=== PATIENT | female | born 1955 | race Caucasian/White ===

== ENCOUNTER → 2023-08-29 15:19 | Outpatient (REF) | payer BC, MEDICARE, SELFPAY | LOC: HWRAD 15:19 | PROVIDERS: ATTENDING PHYSICIAN Internal Medicine Endocrinology, Diabetes & Metabolism; FAMILY PHYSICIAN Family Medicine; REFERRING PHYSICIAN Internal Medicine Rheumatology | DX: E21.0 Primary hyperparathyroidism (principal); Z79.4 Long term (current) use of insulin; E78.5 Hyperlipidemia, unspecified; E04.1 Nontoxic single thyroid nodule; E06.3 Autoimmune thyroiditis; M54.2 Cervicalgia; M54.9 Dorsalgia, unspecified; R05.9 Cough, unspecified | CPT/HCPCS: 71046; 72040; 74018; 77080 ==

== ENCOUNTER → 2024-01-09 10:17 | Outpatient (REF) | payer BC, MEDICARE, SELFPAY | LOC: HWRAD 10:17 | PROVIDERS: ATTENDING PHYSICIAN Family Medicine | DX: E04.1 Nontoxic single thyroid nodule (principal) | CPT/HCPCS: 76536 ==

== ENCOUNTER → 2024-01-20 11:04 | Outpatient (REF) | payer BC, MEDICARE, SELFPAY | LOC: HWWDC 11:04 | PROVIDERS: ATTENDING PHYSICIAN Family Medicine | DX: Z12.31 Encounter for screening mammogram for malignant neoplasm of breast (principal) | CPT/HCPCS: 77063; 77067 ==

== ENCOUNTER → 2024-02-27 10:53 | Outpatient (REF) | payer BC, MEDICARE, SELFPAY | LOC: HWEVLT 10:53 | PROVIDERS: ATTENDING PHYSICIAN Radiology Vascular & Interventional Radiology | DX: I83.893 Varicose veins of bilateral lower extremities with other complications (principal) | CPT/HCPCS: 93970 ==

== ENCOUNTER → 2024-04-14 11:07 | Outpatient (REF) | payer BC, MEDICARE, SELFPAY | LOC: HWEVLT 11:07 | PROVIDERS: ATTENDING PHYSICIAN Radiology Diagnostic Radiology | DX: I83.891 Varicose veins of right lower extremity with other complications (principal) | CPT/HCPCS: 36471 ==

== ENCOUNTER → 2024-05-21 11:05 | Outpatient (REF) | payer BC, MEDICARE, SELFPAY | LOC: PAVMRI 11:05 | PROVIDERS: ATTENDING PHYSICIAN Psychiatry & Neurology Neurology; FAMILY PHYSICIAN Family Medicine | DX: H49.23 Sixth [abducent] nerve palsy, bilateral (principal) | CPT/HCPCS: 70544; 70553; A9575 ==

== ENCOUNTER 2024-07-27 18:06 | Emergency (ER) | payer BC, MEDICARE, SELFPAY ==
[2024-07-27 18:28] LABS: % Basophils 0.7 % (0-2); % Eosinophils 1.3 % (0-6); % Immature Granulocytes 0.3 % (0-0.5); % Lymphocytes 25.8 % (20.5-51.1); % Monocytes 6.8 % (1.7-9.3); % Neutrophils 65.1 % (42.2-75.2); Absolute Basophils 0.1 10^3/uL (0-0.2); Absolute Eosinophils 0.1 10^3/uL (0-0.7); Absolute Lymphocytes 1.8 10^3/uL (1.2-3.4); Absolute Monocytes 0.5 10^3/uL (0.1-0.6); Absolute Neutrophils 4.5 10^3/uL (1.4-6.5); Hematocrit 39.2 % (37.0-47.0); Hemoglobin 12.8 g/dL (12.0-16.0); Mean Corp Hgb Conc. 32.7 g/dL (33.0-37.0); Mean Corpuscular Hgb 30.3 pg (27.0-31.0); Mean Corpuscular Volume 92.9 fL (81.0-99.0); Mean Platelet Volume 10.4 fL (7.4-10.4); Nucleated Red Blood Cells % 0 %; Platelet Count 259 10^3/uL (130-400); Red Blood Cell Count 4.22 10^6/uL (4.20-5.40); Red Cell Dist. Width 12.9 % (11.5-14.5); White Blood Cell Count 6.9 10^3/uL (4.8-10.8)
[2024-07-27 18:43] LABS: ALT (SGPT) 31 U/L (0-35); AST (SGOT) 35 U/L (14-36); Albumin 4.6 g/dl (3.5-5.0); Alkaline Phosphatase 65 U/L (38-126); Blood Urea Nitrogen 30 mg/dl (7-17); Calcium 10.1 mg/dl (8.4-10.2); Carbon Dioxide 24 mmol/L (22-30); Chloride 103 mmol/L (98-107); Glucose 141 mg/dl (70-99); Sodium 136 mmol/L (135-145); Total Bilirubin 0.4 mg/dl (0.2-1.3); Total Protein 7.1 g/dl (6.3-8.2); eGFR > 60.00
[2024-07-27 18:51] LABS: Troponin I < 0.012 ng/ml
[2024-07-27 21:49] VITALS: BP 135/82
[2024-07-27 21:53] VITALS: BMI 30.8
[2024-07-27 22:00] VITALS: BP 137/84
--- NOTE | 2024-07-27 22:05 | ED.GENMED ---
History of Present Illness
General
Chief Complaint: Chest Pain
Time Seen by Provider: 07/27/24 22:04
History of Present Illness
History of Present Illness:
TIME OF INITIAL ENCOUNTER: 10:05 PM
HPI:
3 days ago, the patient started having what she thought was a pinched nerve into the left upper extremity related to some neck discomfort. At that time she also developed chest discomfort. She had 2 recent surgeries and was concerned about the
possibility of having a blood clot as well. She tells me that the left arm discomfort is very similar to the time she had a heart attack 5 years ago. She is known to Dr. Arceo/Dr. Castro. She states that she lost about 100 pounds since being
on
EXAM:
GENERAL: Well appearing in no distress
HEENT: Moist oral mucosa, no significant pain with rotation of the cervical spine
CARDIOVASCULAR: No murmurs, normal heart rate, regular rhythm, No chest wall tenderness
PULMONARY: No respiratory distress, breath sounds are clear and equal
ABDOMEN: Soft with no peritoneal signs, no tenderness
NEUROLOGIC: Excellent strength all extremities, no coordination deficits
PSYCHIATRIC: Appropriate mental status, normal insight and judgement
EXTREMITIES: Nontender, no edema, moves all extremities equally
SKIN: No rash, no lesions
NUMBER AND COMPLEXITY OF PROBLEMS ADDRESSED AT THE ENCOUNTER
� Chronic conditions affecting care: Migraines, CVA, CAD, high blood pressure, hyperlipidemia, IDDM
� Acute Exacerbation and/or Progression of Chronic Illness: This is an acute problem
� Differential Diagnosis includes: Anxiety, cervical radiculopathy, ACS, PE, noncardiac chest pain
AMOUNT AND/OR COMPLEXITY OF DATA TO BE REVIEWED AND ANALYZED
� I performed an independent evaluation of and my interpretation is:
EKG: Sinus 72, normal axis, no acute ST abnormality, no significant change from 10/03/2020
CT:
X-rays: Chest x-ray by my read is unremarkable
Laboratory Studies: CBC unremarkable, chemistries unremarkable however the BUN is 30, troponin is less than 0.012, age-adjusted D-dimer effectively rules out PE,
Other:
� Review of other/old records: Echo from 12/19/2022 showed no regional wall motion abnormalities and EF of 55 to 60% with normal diastolic function. I also reviewed records from February 2019, at that time, the patient was admitted
with ACS and had a stent placed in the LAD�at that time her troponin went from 0.030 to a peak of 0.269
� Clinical information was obtained by an independent historian: Spoke to the at bedside
� Prescriptions/Medications Considered but not given:
� Further testing considered but not performed:
RISK OF COMPLICATIONS AND/OR MORBIDITY OR MORTALITY OF PATIENT MANAGEMENT
� Social determinants of health affecting care:
� Discussion with other providers: I notified Dr. Adair at around 11:30 PM, he suspect this is unlikely to be cardiac.
� Escalation of care including admission/observation vs risk of discharge considered: However given the patient's report feels similar to prior ACS episode, I would like her to follow with cardiology as outpatient.
ANY OTHER UPDATES:
11:35 PM: The patient appears very comfortable at time of discharge.
Past History
Past History
ED Past Medical History: Asthma, CAD (LAD stent), CVA (X 5 ), HTN, Hypercholesterolemia, IDDM, [place], Psychiatric (Anxiety, Depression) and Other (Gallstones, kidney stones,antiphospholipid antibody syndrome, migraines, PNA, )
ED Past Surgical History: Cardiac (LAD stent), Cholecystectomy, Gynecological, Orthopedic (Fusion C5/C6/C7, Lumbar fusion, SI joint fusion, ), Tonsilectomy, Urological (bladder sling with rectocele repair) and Other (Jaw surgery, )
Social History
Tobacco: Non-smoker
Alcohol: None
Personal:
Living: with family
Employment: Employed
Family History
Family History: Negative Diabetes, Hypertension or CAD
Phy Exam
Physical Exam
Physical Exam:
See HPI
Scores
Heart Score for Chest Pain Patients
STEMI patient?: Not applicable
Course
Orders/Labs/Results
Orders:
Orders
07/27/24 18:08
Electrocardiogram (*1) Urgent
Reason for Study: Chest Pain
EKG- Treatment ONCE
CR Chest - 2 Views Urgent
Comment:
Reason For Exam: chest pain
07/27/24 18:17
Complete Blood Count/With Diff Urgent
Comprehensive Metabolic Panel Urgent
Troponin I Urgent
07/27/24 22:18
Electrocardiogram (*1) Urgent
Reason for Study: Chest Pain
EKG- Treatment ONCE
07/27/24 22:27
D-Dimer Urgent
Troponin I Urgent
Abnormal Lab Results
07/27/24 07/27/24
18:17 22:27
MCHC 32.7 L g/dL
(33.0-37.0)
D-Dimer 0.59 H ug/mlFEU
(0.00-0.50)
BUN 30 H mg/dl
(7-17)
Glucose 141 H mg/dl
(70-99)
07/27/24 18:17
07/27/24 18:17
Vital Signs
Initial and Last Documented VS:
Initial Vital Signs
Temp Pulse Resp Pulse Ox
36.9 C 81 18 100
07/27/24 18:08 07/27/24 18:08 07/27/24 18:08 07/27/24 18:08
Last Documented Vital Signs
Temp Pulse Resp BP Pulse Ox
36.9 C 74 16 137/84 100
07/27/24 18:08 07/27/24 22:00 07/27/24 22:00 07/27/24 22:00 07/27/24 18:08
*Critical Care Note
Total Time (30-74mins, 75-104mins- exclusive of procedures): Not Applicable
ED Attending Note
-
Portions of this chart may have been created with voice recognition software.� Occasional wrong word or��sound alike� substitutions may have occurred due to the inherent limitations of voice recognition software.
Discharge Plan
Departure
Patient Disposition: Home (Routine Discharge)
Date of Disposition: 07/27/24
Time of Disposition: 23:35
Patient with high blood pressure during this ER visit?: Yes
Discharge Problem:
Chest pain
Instructions: Chest Pain DCA Follow Up, BLOOD PRESSURE
Prescriptions:
No Action
[id number] [Fiorinal-Codeine #3] 1 EACH capsule
1 ea PO BIDPRN PRN (Reason: migraine)
furosemide 40 MG tablet
40 mg PO DAILY
tramadol 50 MG tablet
50 mg PO Q6HPRN PRN (Reason: mild pain)
lorazepam 0.5 MG tablet
0.5 mg PO HSPRN PRN (Reason: if first ativan is ineffective)
duloxetine 30 MG capsule,delayed release(DR/EC)
60 mg PO HS
multivitamin with folic acid [Tab-A-Jaime] 1 TABLET tablet
1 tab PO DAILY
losartan 50 MG tablet
50 mg PO DAILY
insulin aspart U-100 [Novolog U-100 Insulin aspart] 1,000 UNITS/10 ML solution
40 units SC AC
insulin degludec [Tresiba U-100 Insulin] 100 UNIT/ML solution
50 unit SQ HS
metoprolol tartrate 25 MG tablet
25 mg PO BID Qty: 60 6RF
ticagrelor [Brilinta] 90 MG tablet
90 mg PO BID Qty: 60 11RF
rosuvastatin 5 MG tablet
10 mg PO QPM 90 Days Qty: 90 3RF
verapamil 120 MG tablet extended release
120 mg PO HS
aspirin 81 MG tablet,delayed release (DR/EC)
81 mg PO DAILY
levothyroxine 50 MCG tablet
50 mcg PO DAILY
bupropion HCl 100 MG tablet
300 mg PO DAILY
famotidine 20 MG tablet
20 mg PO HS
oxycodone 5 MG tablet
5 mg PO Q6HPRN PRN (Reason: Pain) Qty: 8 0RF
Referrals:
German Barbosa MD [Active] -
Consuelo Barajas DO [Family Provider] -
Activity Restrictions/Additional Instructions:
Please follow-up with primary care doctor. I notified Dr. Adair, Dr. Castro's associate. I still think it be a good idea for you to follow-up with your rn disease management as an outpatient as well.
Interventions
Interventions:
*Risk Screen - Suicide Last Done: 07/27/24 21:53
*General Assessment Last Done: 07/27/24 21:53
*Neglect/Abuse Screening Last Done: 07/27/24 21:46
*ED COVID-19 Vaccine History Last Done: 07/27/24 21:53
ED- Cardiac Assessment Last Done: 07/27/24 21:52
Discharge Date and Time
Print Language: MOHAWK
[2024-07-27 22:51] LABS: D-Dimer 0.59 ug/mlFEU (0.00-0.50)
[2024-07-27 22:56] LABS: Troponin I < 0.012 ng/ml
[2024-07-27 23:00] VITALS: BP 141/80
== END 2024-07-27 23:54 | disposition home or self-care (01) ==
LOC: EMR 18:06
PROVIDERS: Emergency Medicine; EMERGENCY PHYSICIAN Emergency Medicine; FAMILY PHYSICIAN Family Medicine
DX: R07.89 Other chest pain (principal); E78.00 Pure hypercholesterolemia, unspecified; E11.9 Type 2 diabetes mellitus without complications; I10 Essential (primary) hypertension; I25.10 Atherosclerotic heart disease of native coronary artery without angina pectoris; Z86.73 Personal history of transient ischemic attack (TIA), and cerebral infarction without residual deficits; Z79.85 Long-term (current) use of injectable non-insulin antidiabetic drugs; Z95.5 Presence of coronary angioplasty implant and graft; J45.909 Unspecified asthma, uncomplicated; Z79.4 Long term (current) use of insulin
CPT/HCPCS: 99285; 71046; 80053; 84484; 85025; 85379; 93005

== ENCOUNTER → 2025-01-20 11:12 | Outpatient (REF) | payer BC, MEDICARE, SELFPAY | LOC: HWWDC 11:12 | PROVIDERS: ATTENDING PHYSICIAN Family Medicine | DX: Z12.31 Encounter for screening mammogram for malignant neoplasm of breast (principal) | CPT/HCPCS: 77063; 77067 ==

== ENCOUNTER → 2025-02-15 14:11 | Outpatient (REF) | payer BC, MEDICARE, SELFPAY | LOC: HWRAD 14:11 | PROVIDERS: ATTENDING PHYSICIAN Internal Medicine Rheumatology; PRIMARYCARE PHYSICIAN Family Medicine | DX: M54.50 Low back pain, unspecified (principal) | CPT/HCPCS: 72114 ==

== ENCOUNTER 2025-03-30 06:19 | Day surgery (SDC) | payer BC, MEDICARE, SELFPAY ==
[2025-03-30 07:24] LABS: Glucose - Point of Care 117 mg/dl (70-99)
== END 2025-03-30 08:45 | disposition home or self-care (01) ==
LOC: GI 06:19
PROVIDERS: ATTENDING PHYSICIAN Specialist; FAMILY PHYSICIAN Family Medicine
DX: Z12.11 Encounter for screening for malignant neoplasm of colon (principal); K57.30 Diverticulosis of large intestine without perforation or abscess without bleeding; K64.8 Other hemorrhoids; Z86.0101 Personal history of adenomatous and serrated colon polyps
CPT/HCPCS: G0105; 82962

== ENCOUNTER → 2025-05-04 11:30 | Outpatient (REF) | payer BC, MEDICARE, SELFPAY | LOC: HWRAD 11:30 | PROVIDERS: ATTENDING PHYSICIAN Ophthalmology; FAMILY PHYSICIAN Family Medicine | DX: E05.00 Thyrotoxicosis with diffuse goiter without thyrotoxic crisis or storm (principal); H05.20 Unspecified exophthalmos | CPT/HCPCS: 70480 ==